=== PATIENT | female | born 1950 | race Caucasian/White ===

== ENCOUNTER → 2023-09-07 07:32 | Outpatient (REF) | payer MEDICARE, OTHER, SELFPAY | LOC: EMG 07:32 | PROVIDERS: ATTENDING PHYSICIAN Internal Medicine; FAMILY PHYSICIAN Physician Assistant | DX: R20.0 Anesthesia of skin (principal); M54.16 Radiculopathy, lumbar region | CPT/HCPCS: 95886; 95909 ==

== ENCOUNTER → 2023-09-08 10:22 | Outpatient (REF) | payer MEDICARE, OTHER, SELFPAY | LOC: MRI 3T 10:22 | PROVIDERS: ATTENDING PHYSICIAN Internal Medicine; FAMILY PHYSICIAN Physician Assistant | DX: M54.50 Low back pain, unspecified (principal) | CPT/HCPCS: 72148 ==

== ENCOUNTER → 2023-10-23 09:19 | Outpatient (REF) | payer MEDICARE, OTHER, SELFPAY | LOC: PAVMRI 09:19 | PROVIDERS: ATTENDING PHYSICIAN Family Medicine | DX: K86.2 Cyst of pancreas (principal) | CPT/HCPCS: 74183; A9575 ==

== ENCOUNTER → 2023-12-16 09:13 | Outpatient (REF) | payer MEDICARE, OTHER, SELFPAY | LOC: WDC 09:13 | PROVIDERS: ATTENDING PHYSICIAN Family Medicine | DX: Z12.31 Encounter for screening mammogram for malignant neoplasm of breast (principal) | CPT/HCPCS: 77063; 77067 ==

== ENCOUNTER → 2024-07-26 10:28 | Outpatient (REF) | payer MEDICARE, OTHER, SELFPAY | LOC: HWRAD 10:28 | PROVIDERS: ATTENDING PHYSICIAN Physical Medicine & Rehabilitation; FAMILY PHYSICIAN Family Medicine | DX: M54.41 Lumbago with sciatica, right side (principal); M25.469 Effusion, unspecified knee; M25.551 Pain in right hip; M25.552 Pain in left hip; M79.671 Pain in right foot | CPT/HCPCS: 72100; 73523; 73564; 73630 ==

== ENCOUNTER → 2024-08-19 07:42 | Outpatient (REF) | payer MEDICARE, OTHER, SELFPAY | LOC: HWRAD 07:42 | PROVIDERS: ATTENDING PHYSICIAN Family Medicine | DX: M81.0 Age-related osteoporosis without current pathological fracture (principal) | CPT/HCPCS: 77080 ==

== ENCOUNTER → 2024-10-28 18:52 | Outpatient (REF) | payer MEDICARE, OTHER, SELFPAY | LOC: MRI 18:52 | PROVIDERS: ATTENDING PHYSICIAN Family Medicine | DX: K86.2 Cyst of pancreas (principal) | CPT/HCPCS: 74183; A9575 ==

== ENCOUNTER → 2024-12-02 14:38 | Outpatient (REF) | payer MEDICARE, OTHER, SELFPAY | LOC: MRI 3T 14:38 | PROVIDERS: ATTENDING PHYSICIAN Family Medicine | DX: M54.50 Low back pain, unspecified (principal) | CPT/HCPCS: 72158; A9575 ==

== ENCOUNTER → 2024-12-03 06:41 | Outpatient (REF) | payer MEDICARE, OTHER, SELFPAY | LOC: PAVMRI 06:41 | PROVIDERS: ATTENDING PHYSICIAN Family Medicine | DX: M25.552 Pain in left hip (principal) | CPT/HCPCS: 73721 ==

== ENCOUNTER → 2024-12-21 09:02 | Outpatient (REF) | payer MEDICARE, OTHER, SELFPAY | LOC: WDC 09:02 | PROVIDERS: ATTENDING PHYSICIAN Family Medicine | DX: Z12.31 Encounter for screening mammogram for malignant neoplasm of breast (principal) | CPT/HCPCS: 77063; 77067 ==